=== PATIENT | female | born 1950 | race Two or more races ===

== ENCOUNTER 2022-01-05 10:45 | Inpatient (IN) | payer OTHER ==
[~2022-01-05] VITALS: Ht 149.9 cm; Wt 59.0 kg
[2022-01-05] MEDS ORDERED: ZESTRIL10 M1 PO (14:01)
[2022-01-05] MEDS ORDERED: PROGEST PO (14:02)
[2022-01-05] MEDS ORDERED: MULTIVIT PO (14:02)
[2022-01-09] MEDS ORDERED: PROGESTERONE200 MG (08:02)
[2022-01-09] MEDS ORDERED: MULTI VITAMIN1 EACH PO (08:03)
[2022-01-09] MEDS ORDERED: COLACE100 MG PO (09:50)
[2022-01-09] MEDS ORDERED: MEDROLPACK PO (09:51)
[2022-01-09] MEDS ORDERED: AMOX-CLAV 875-1 EACH PO (09:51)
[2022-01-09] MEDS ORDERED: NEURONTIN800 MG PO (09:51)
[2022-01-09] MEDS ORDERED: PERCOCET 5-3251 EACH PO (09:51)
== END 2022-01-11 12:19 | disposition home or self-care (01) | DRG 455 ==
LOC: ADM 10:45 → EDSTATUS 10:45 → PED 01-09 05:40 → O/R 01-09 05:40 → SURH 01-09 07:00 → PED 01-09 10:47
PROVIDERS: ADMIT Orthopaedic Surgery Orthopaedic Surgery of the Spine; ATTEND Orthopaedic Surgery Orthopaedic Surgery of the Spine
PROC: 0SG1071 Fusion of 2 or more Lumbar Vertebral Joints with Autologous Tissue Substitute, Posterior Approach, Posterior Column, Open Approach (ICD-10-PCS; 2022-01-09)
PROC: 0ST20ZZ Resection of Lumbar Vertebral Disc, Open Approach (ICD-10-PCS; 2022-01-09)
PROC: 0QB30ZZ Excision of Left Pelvic Bone, Open Approach (ICD-10-PCS; 2022-01-09)
PROC: 07DR0ZZ Extraction of Iliac Bone Marrow, Open Approach (ICD-10-PCS; 2022-01-09)
PROC: 0SG10A0 Fusion of 2 or more Lumbar Vertebral Joints with Interbody Fusion Device, Anterior Approach, Anterior Column, Open Approach (ICD-10-PCS; principal; 2022-01-09 07:00)
DX: M48.062 Spinal stenosis, lumbar region with neurogenic claudication (principal); M41.56 Other secondary scoliosis, lumbar region; M51.36 Other intervertebral disc degeneration, lumbar region; M43.16 Spondylolisthesis, lumbar region; I10 Essential (primary) hypertension

== ENCOUNTER 2024-05-15 15:18 | Inpatient (IN) | payer OTHER ==
[~2024-05-15] VITALS: Ht 149.9 cm; Wt 56.7 kg
[~2024-05-15 15:18] MED LIST: AMOX-CLAV 875-1 EACH PO; COLACE100 MG PO; MEDROLPACK PO; MULTI VITAMIN1 EACH PO; MULTIVIT PO; NEURONTIN800 MG PO; PERCOCET 5-3251 EACH PO; PROGEST PO; PROGESTERONE200 MG; ZESTRIL10 M1 PO
[2024-05-15] MEDS ORDERED: RESTORIL30 MG PO (16:18)
[2024-05-15] MEDS ORDERED: AMLODIPINE-BEN1 EAC2 PO (16:19)
[2024-05-15] MEDS ORDERED: ACETAMINOPHEN 325 MG TABLET PO STA (16:34)
[2024-05-15] MEDS ORDERED: CEFTRIAXONE SODIUM 2,000 MG VIAL IV STA (16:34)
[2024-05-15] MEDS ORDERED: 0.9 % SODIUM CHLORIDE 1,000 ML IV STA (16:35)
[2024-05-15 18:18] LABS: HEMATOCRIT 43.2 % (36.0-45.00); HEMOGLOBIN 14.6 g/dL (12.0-15.00); MEAN CORPUSCULAR HEMOGLOBIN 33.1 pg (27.00-32.0); MEAN CORPUSCULAR HGB CONC 33.8 g/dl (32.0-36.0); PLATELET COUNT 335 K/uL (150-450); RED BLOOD COUNT 4.41 M/uL (4.00-6.00); RED CELL DISTRIBUTION WIDTH 13.4 % (11.5-14.5)
[2024-05-15 18:34] LABS: ALBUMIN 3.8 gm/dL (3.4-5.0); BILIRUBIN TOTAL 0.66 mg/dL (0.3-1.2); CALCIUM 9.1 mg/dL (8.5-10.1); CREATININE SERUM 0.86 mg/dL (0.55-1.02); GFR 64.86; GLOBULINA 3.8 G/DL (2.4-3.5); POTASSIUM 3.74 mEq/L (3.5-5.1); TOTAL PROTEIN 7.6 gm/dL (6.4-8.2)
[2024-05-15 19:30] LABS: URINE APPEARANCE Cloudy; URINE BILIRRUBIN Negative (NEGATIVE); URINE BLOOD Large; URINE COLOR Dark Yellow; URINE GLUCOSE Negative (NEGATIVE); URINE KETONE Negative (NEGATIVE); URINE LEUKOCYTE Large; URINE NITRATE Positive; URINE PROTEIN 30 (NEGATIVE)
[2024-05-15 19:40] LABS: URINE EPITHELIAL CELLS 8.6 uL (0.0-38.8); URINE RBC 87.6 uL (0.0-20.8); URINE WBC 1646.4 uL (0.0-23.2)
[2024-05-15 19:46] LABS: URINE BACTERIA > 9821.5 uL (0.0-1933)
[2024-05-15] MEDS ORDERED: CEFTRIAXONE SODIUM 2,000 MG in 0.9 % SODIUM CHLORIDE 100 ML IV SCH (20:13)
[2024-05-15] MEDS ORDERED: FAMOTIDINE/PF 20 MG in 0.9 % SODIUM CHLORIDE 100 ML IV SCH (20:14)
[2024-05-15] MEDS ORDERED: 0.9 % SODIUM CHLORIDE 1,000 ML IV SCH (20:15)
[2024-05-15] MEDS ORDERED: AMLODIPINE BESYLATE 5 MG TABLET PO SCH (20:30)
[2024-05-15] MEDS ORDERED: SODIUM CHLORIDE 0.45 % 1,000 ML IV STA (20:35)
[2024-05-15] MEDS ORDERED: TEMAZEPAM 15 MG CAPSULE PO PRN (20:45)
[2024-05-15] MEDS ORDERED: KETOROLAC TROMETHAMINE 30 MG VIAL IU PRN (20:45)
[2024-05-15 23:09] VITALS: BP 101/72
[2024-05-16] VITALS (8 sets, daily range): BP systolic 118–139; BP diastolic 69–80; O2SAT 90–98
[2024-05-16] MEDS ORDERED: MEROPENEM 500 MG/VIAL VIAL IV SCH
[2024-05-17] VITALS (9 sets, daily range): BP systolic 119–128; BP diastolic 66–73; O2SAT 89–98
[2024-05-17 08:08] LABS: HEMATOCRIT 37.3 % (36.0-45.00); HEMOGLOBIN 12.6 g/dL (12.0-15.00); MEAN CELL VOLUME 97.1 fL (80.00-100.00); MEAN CORPUSCULAR HEMOGLOBIN 32.9 pg (27.00-32.0); MEAN CORPUSCULAR HGB CONC 33.9 g/dl (32.0-36.0); PLATELET COUNT 302 K/uL (150-450); RED BLOOD COUNT 3.84 M/uL (4.00-6.00)
[2024-05-17 08:35] LABS: URINE APPEARANCE Clear; URINE BILIRRUBIN Negative (NEGATIVE); URINE BLOOD Moderate; URINE COLOR Yellow; URINE GLUCOSE Negative (NEGATIVE); URINE KETONE 15 (NEGATIVE); URINE LEUKOCYTE Trace; URINE NITRATE Negative; URINE PROTEIN 30 (NEGATIVE); URINE UROBILINOGEN 0.2 E.U./dl
[2024-05-17 08:43] LABS: URINE BACTERIA 32.7 uL (0.0-1933); URINE EPITHELIAL CELLS 7.8 uL (0.0-38.8); URINE RBC 178.6 uL (0.0-20.8); URINE WBC 133.3 uL (0.0-23.2)
[2024-05-17 08:53] LABS: BILIRUBIN TOTAL 0.66 mg/dL (0.3-1.2); CALCIUM 8.5 mg/dL (8.5-10.1); CREATININE SERUM 0.73 mg/dL (0.55-1.02); GFR 78.37; GLOBULINA 2.8 G/DL (2.4-3.5); MAGNESIUM 2.1 mg/dL (1.8-2.4); PHOSPHOROUS 2.2 mg/dL (2.5-4.9); POTASSIUM 4.39 mEq/L (3.5-5.1); TOTAL PROTEIN 5.8 gm/dL (6.4-8.2)
[2024-05-17] MEDS ORDERED: METOPROLOL SUCCINATE 25 MG TAB.SR.24H PO SCH (09:00)
[2024-05-17] MEDS ORDERED: NAPH,MB-DB/K PH,MBDB 1 PKT PACKET PO NR (13:00)
[2024-05-17] MEDS ORDERED: LACTOBACILLUS ACIDOPHILUS 1 CAP CAP PO SCH (23:06)
[2024-05-18] VITALS (7 sets, daily range): BP systolic 100–133; BP diastolic 60–63; O2SAT 93–98
[2024-05-18 06:27] LABS: HEMATOCRIT 36.9 % (36.0-45.00); HEMOGLOBIN 12.5 g/dL (12.0-15.00); MEAN CORPUSCULAR HEMOGLOBIN 33.3 pg (27.00-32.0); PLATELET COUNT 317 K/uL (150-450); RED BLOOD COUNT 3.76 M/uL (4.00-6.00); RED CELL DISTRIBUTION WIDTH 13.1 % (11.5-14.5)
[2024-05-18 07:05] LABS: ALBUMIN 2.8 gm/dL (3.4-5.0); BILIRUBIN TOTAL 0.39 mg/dL (0.3-1.2); CALCIUM 8.2 mg/dL (8.5-10.1); CREATININE SERUM 0.71 mg/dL (0.55-1.02); GFR 80.92; GLOBULINA 2.9 G/DL (2.4-3.5); POTASSIUM 4.35 mEq/L (3.5-5.1); TOTAL PROTEIN 5.7 gm/dL (6.4-8.2)
[2024-05-18] MEDS ORDERED: NAPH,MB-DB/K PH,MBDB 1 PKT PACKET PO SCH (09:00)
[2024-05-18] MEDS ORDERED: FAMOtidine 20 MG TABLET PO SCH (17:00)
[2024-05-19] VITALS (8 sets, daily range): BP systolic 114–151; BP diastolic 51–81; O2SAT 90–100
[2024-05-20 01:11] VITALS: BP 110/70; O2SAT 96
[2024-05-20 04:51] LABS: HEMATOCRIT 36.9 % (36.0-45.00); HEMOGLOBIN 12.7 g/dL (12.0-15.00); MEAN CELL VOLUME 95.9 fL (80.00-100.00); MEAN CORPUSCULAR HGB CONC 34.4 g/dl (32.0-36.0); PLATELET COUNT 401 K/uL (150-450); RED BLOOD COUNT 3.85 M/uL (4.00-6.00); RED CELL DISTRIBUTION WIDTH 12.9 % (11.5-14.5)
[2024-05-20 05:14] LABS: ALBUMIN 2.9 gm/dL (3.4-5.0); BILIRUBIN TOTAL 0.4 mg/dL (0.3-1.2); CREATININE SERUM 0.84 mg/dL (0.55-1.02); GFR 66.65; GLOBULINA 3.2 G/DL (2.4-3.5); MAGNESIUM 2.5 mg/dL (1.8-2.4); POTASSIUM 4.54 mEq/L (3.5-5.1); TOTAL PROTEIN 6.1 gm/dL (6.4-8.2)
[2024-05-20 06:25] VITALS: O2SAT 87
[2024-05-20 09:42] VITALS: BP 118/64; O2SAT 99
[2024-05-20] MEDS ORDERED: AMOX1TAB5 PO (09:42)
[2024-05-20] MEDS ORDERED: INTESTINEX680 M1 PO (09:42)
[2024-05-20 10:30] VITALS: O2SAT 96
== END 2024-05-20 13:48 | disposition home or self-care (01) | DRG 872 ==
LOC: ER 15:20 → MEDI 20:57
PROVIDERS: General Practice; Internal Medicine; Internal Medicine Infectious Disease; ADMIT Internal Medicine; ATTEND Internal Medicine
PROC: BW21ZZZ Computerized Tomography (CT Scan) of Abdomen and Pelvis (ICD-10-PCS; principal; 2024-05-15)
PROC: 4A12X4Z Monitoring of Cardiac Electrical Activity, External Approach (ICD-10-PCS; 2024-05-16)
DX: A41.9 Sepsis, unspecified organism (principal); N39.0 Urinary tract infection, site not specified; R00.0 Tachycardia, unspecified; D72.829 Elevated white blood cell count, unspecified; I10 Essential (primary) hypertension